=== PATIENT | female | born 1990 | race Caucasian/White ===

== ENCOUNTER 2021-04-22 09:08 | Inpatient (IN) | payer OTHER ==
[2021-04-22 11:51] VITALS: BMI 27.6
[2021-04-22] MEDS ORDERED: BISMUTH SUBSALICYLATE 524 MG/30 ML PO PRN (14:53)
[2021-04-22] MEDS ORDERED: MAG HYDROX/AL HYDROX/SIMETH 30 ML UNIT-DOSE CUP PO PRN (14:53)
[2021-04-22] MEDS ORDERED: NALOXONE HCL 0.4 MG/ML VIAL IM PRN (14:53)
[2021-04-22] MEDS ORDERED: ACETAMINOPHEN 325 MG TABLET (FP) PO PRN ×2 (14:53)
[2021-04-22] MEDS ORDERED: MENTHOL/PHENOL 1 EACH UD MM PRN (14:53)
[2021-04-22] MEDS ORDERED: MAGNESIUM CITRATE 300 ML BOTTLE PO PRN (14:53)
[2021-04-22] MEDS ORDERED: IBUPROFEN 400 MG TABLET (FP) PO PRN (14:53)
[2021-04-22] MEDS ORDERED: MAGNESIUM HYDROX 2400MG/30ML ORAL SUSPENSION 30 ML CUP PO PRN (14:53)
[2021-04-22] MEDS ORDERED: methaDONE HCL 10 MG TABLET (FOR DETOX USE ONLY) PO ONE (15:45)
[2021-04-22] MEDS ORDERED: TRIMETHOBENZAMIDE HCL 200MG/2ML INJ IM ONE ×2 (15:55→16:24)
[2021-04-22] MEDS: cloNIDine HCL 0.1 MG TABLET PO PRN (18:20)
[2021-04-22] MEDS: NICOTINE POLACRILEX 2 MG GUM BUC PRN (19:20)
[2021-04-22] MEDS: NICOTINE 10 MG CARTRIDGE (INHALER) IH PRN (19:29)
[2021-04-22] MEDS: clonazePAM 0.5 MG ODT TABLETS SL PRN (19:43)
[2021-04-22] MEDS: MELATONIN 5 MG TABLETS PO SCH (22:25)
[2021-04-22] MEDS: THIAMINE HCL 100 MG TABLET (FP) PO SCH (22:25)
[2021-04-22] MEDS: METHOCARBAMOL 500 MG TABLET PO PRN (22:25)
[2021-04-23] MEDS ORDERED: methaDONE HCL 10 MG TABLET (FOR DETOX USE ONLY) ONE (09:37)
[2021-04-23] MEDS: PRENATAL VITAMINS W/ FOLIC ACID TABLET (FP) PO SCH (10:14)
[2021-04-23] MEDS: clonazePAM 0.5 MG ODT TABLETS SL PRN ×2 (10:15→18:05)
[2021-04-23] MEDS: NICOTINE 10 MG CARTRIDGE (INHALER) IH PRN (10:16)
[2021-04-23] MEDS: METHOCARBAMOL 500 MG TABLET PO PRN ×2 (15:09→22:13)
[2021-04-23] MEDS: THIAMINE HCL 100 MG TABLET (FP) PO SCH (22:13)
[2021-04-23] MEDS: MELATONIN 5 MG TABLETS PO SCH (22:13)
[2021-04-23] MEDS: ESCITALOPRAM OXALATE 20 MG TABLET PO SCH (22:13)
[2021-04-23] MEDS: cloNIDine HCL 0.1 MG TABLET PO PRN (22:40)
[2021-04-24] MEDS ORDERED: methaDONE HCL 10 MG TABLET (FOR DETOX USE ONLY) PO ONE (10:00)
[2021-04-24] MEDS: PRENATAL VITAMINS W/ FOLIC ACID TABLET (FP) PO SCH (10:17)
[2021-04-24] MEDS: clonazePAM 0.5 MG ODT TABLETS SL PRN ×2 (10:43→22:18)
[2021-04-24] MEDS: METHOCARBAMOL 500 MG TABLET PO PRN (13:20)
[2021-04-24] MEDS: NICOTINE POLACRILEX 2 MG GUM BUC PRN (13:20)
[2021-04-24 15:02] LABS: HEMOGLOBIN 13.2 GM/dL (10.7-15.3); MCH 29.4 pg (25.7-33.7); MCHC 33.8 g/dl (32.0-36.0); MEAN CELL VOLUME 86.9 fl (80-96); MEAN PLT VOLUME 8.3 fl (7.5-11.1); PLATELET COUNT 319 10^3/uL (134-434); RBC 4.48 M/mm3 (3.60-5.2); RDW 13.7 % (11.6-15.6); WHITE BLOOD COUNT 5.6 K/mm3 (4.0-10.0)
[2021-04-24 15:05] LABS: CALCIUM 9.4 mg/dL (8.5-10.1)
[2021-04-24 15:06] LABS: ALBUMIN 3.8 g/dl (3.4-5.0)
[2021-04-24 15:09] LABS: CREATININE 0.9 mg/dL (0.55-1.3)
[2021-04-24 15:10] LABS: BILIRUBIN,TOTAL 0.3 mg/dL (0.2-1)
[2021-04-24 15:11] LABS: TOT PROT 7.1 g/dl (6.4-8.2)
[2021-04-24] MEDS: THIAMINE HCL 100 MG TABLET (FP) PO SCH (22:17)
[2021-04-24] MEDS: ESCITALOPRAM OXALATE 20 MG TABLET PO SCH (22:17)
[2021-04-24] MEDS: MELATONIN 5 MG TABLETS PO SCH (22:17)
[2021-04-24] MEDS: cloNIDine HCL 0.1 MG TABLET PO PRN (23:57)
[2021-04-25] MEDS ORDERED: methaDONE HCL 10 MG TABLET (FOR DETOX USE ONLY) ONE (08:42)
[2021-04-25] MEDS: PRENATAL VITAMINS W/ FOLIC ACID TABLET (FP) PO SCH (10:01)
[2021-04-25] MEDS: clonazePAM 0.5 MG ODT TABLETS SL PRN (10:02)
[2021-04-25] MEDS: METHOCARBAMOL 500 MG TABLET PO PRN ×2 (12:39→20:31)
[2021-04-25] MEDS: NICOTINE 10 MG CARTRIDGE (INHALER) IH PRN (12:39)
[2021-04-25] MEDS: THIAMINE HCL 100 MG TABLET (FP) PO SCH (22:41)
[2021-04-25] MEDS: ESCITALOPRAM OXALATE 20 MG TABLET PO SCH (22:41)
[2021-04-25] MEDS: MELATONIN 5 MG TABLETS PO SCH (22:41)
[2021-04-26] MEDS ORDERED: methaDONE HCL 10 MG TABLET (FOR DETOX USE ONLY) PO ONE (10:00)
[2021-04-26] MEDS: PRENATAL VITAMINS W/ FOLIC ACID TABLET (FP) PO SCH (10:22)
[2021-04-26] MEDS: METHOCARBAMOL 500 MG TABLET PO PRN ×2 (10:24→23:20)
[2021-04-26] MEDS: NICOTINE 10 MG CARTRIDGE (INHALER) IH PRN (11:32)
[2021-04-26] MEDS: diazePAM 5 MG TABLET PO PRN ×3 (11:55→21:45)
[2021-04-26] MEDS: NICOTINE POLACRILEX 2 MG GUM BUC PRN (15:58)
[2021-04-26] MEDS: ESCITALOPRAM OXALATE 20 MG TABLET PO SCH (21:42)
[2021-04-26] MEDS: THIAMINE HCL 100 MG TABLET (FP) PO SCH (21:42)
[2021-04-26] MEDS: MELATONIN 5 MG TABLETS PO SCH (21:42)
[2021-04-27] MEDS: METHOCARBAMOL 500 MG TABLET PO PRN (05:22)
[2021-04-27] MEDS: diazePAM 5 MG TABLET PO PRN (08:31)
[2021-04-27 08:47] VITALS: BP 116/68; PULSE 67; TEMP 96.9
[2021-04-27] MEDS: PRENATAL VITAMINS W/ FOLIC ACID TABLET (FP) PO SCH (10:42)
== END 2021-04-27 10:57 | disposition home or self-care (01) | DRG 773 ==
LOC: YASAS 09:08 → Y3N 15:12
PROVIDERS: ADMIT Allergy & Immunology; ATTEND Allergy & Immunology
PROC: HZ2ZZZZ Detoxification Services for Substance Abuse Treatment (ICD-10-PCS; principal; 2021-04-22)
DX: F11.23 Opioid dependence with withdrawal (principal); F14.20 Cocaine dependence, uncomplicated; F17.210 Nicotine dependence, cigarettes, uncomplicated; F19.282 Other psychoactive substance dependence with psychoactive substance-induced sleep disorder; F19.280 Other psychoactive substance dependence with psychoactive substance-induced anxiety disorder; F31.9 Bipolar disorder, unspecified; F90.0 Attention-deficit hyperactivity disorder, predominantly inattentive type
CPT/HCPCS: 36415; 80053; 81025; 85027; 86780; 93005; 93010; C9803; J0735; U0003; U0005